=== PATIENT | male | born 1995 | race Caucasian/White ===

== ENCOUNTER 2016-06-05 19:29 | Emergency (ER) | payer MEDICAID, OTHER ==
[~2016-06-05] VITALS: Ht 182.9 cm; Wt 100.0 kg
[~2016-06-05 19:29] MED LIST: GEOD80CA PO; NAPR250UDC PO; TRAZ100 PO
[2016-06-05 19:33] VITALS: BP 147/78; PULSE 80; RESP 16; TEMP 97.7; O2SAT 98
--- NOTE | 2016-06-05 19:40 | PD ---
Physical Exam Time Seen by Provider: 19:37 Narrative 20 year old male here for evaluation. He has headache and neck pain radiating down R arm which started after playing football and having his collide with another player's shoulder. Questionable LOC. VSS seen at triage desk. Awaiting bed placement. Data Data Last Documented VS Vital Signs Date Time Temp Pulse Resp B/P Pulse Ox O2 Delivery O2 Flow Rate FiO2 06/05/16 19:33 97.7 80 16 147/78 98 MDM Medical Record Reviewed: Yes Supervised Visit with CASSY: Yes Adis Corea Jun 05, 2016 19:40
[2016-06-05 20:40] VITALS: BP 150/69; PULSE 61; RESP 18; O2SAT 99
--- NOTE | 2016-06-05 21:11 | PD ---
HPI Chief Complaint: Injury Time Seen by Provider: 20:59 Travel History International Travel<30 days: No Contact w/Intl Traveler<30days: No Traveled to known affect area: No History of Present Illness HPI 20-year-old male here by private vehicle for evaluation of head, neck, right shoulder pain, and right index finger pain. The patient reports that he was training for football and his backyard when he ran into a tree. He was not wearing any pads on this occurred. He knew he was getting off the ground. He is not sure if he lost consciousness. Pain is moderate, constant, worse with movement and palpation. No paresthesias or motor deficits. No abdominal pain. No dyspnea. No lower extremity pain. Borden cervical collar placed in triage. [facility] Past Medical History ADHD: Yes Asthma: Yes Cancer: No Developmental Delay: No Diabetes: No Diminished Hearing: No Psychiatric: Yes (THINKS BIPOLAR) Immunizations Current: Yes Migraines: Yes Seizures: Yes Thyroid Disease: No Ulcer: No Tetanus Vaccination: Unknown Influenza Vaccination: No Past Surgical History Appendectomy: No Cholecystectomy: No Other Surgery: No Social History Alcohol Use: No Tobacco Use: No Substance Use: No Allergies-Medications (Allergen,Severity, Reaction): Coded Allergies: No Known Allergies (Verified , 06/05/16) Reported Meds & Prescriptions Reported Meds & Active Scripts Active No Active Prescriptions or Reported Medications Review of Systems Except as stated in HPI: all other systems reviewed are Neg Physical Exam Narrative GENERAL: Well-developed, well-nourished, awake, alert, no acute distress. SKIN: Focused skin assessment warm/dry. Right anterior shoulder ecchymosis. Superficial abrasions to the dorsal aspect of the right index finger. HEAD: Atraumatic. Normocephalic. EYES: Pupils equal and round. No scleral icterus. No injection or drainage. ENT: Mucous membranes pink and moist. NECK: Trachea midline. No JVD. Mild midline and right lateral neck tenderness without step-offs or masses. CARDIOVASCULAR: Regular rate and rhythm. Capillary refill in right index finger less than 2 seconds. RESPIRATORY: No accessory muscle use. Clear to auscultation. Breath sounds equal bilaterally. GASTROINTESTINAL: Abdomen soft, non-tender, nondistended. MUSCULOSKELETAL: Skin exam as above. Mild ecchymosis throughout right index finger. The patient is able to flex and extend this finger, however it is painful for him. Right shoulder with diffuse tenderness with moderate edema without obvious bony deformity with limited range of motion secondary to pain. The rest of his joints and extremities are without deformity, without tenderness , with normal range of motion. NEUROLOGICAL: Awake and alert. No obvious cranial nerve deficits. Motor grossly within normal limits. Normal speech. PSYCHIATRIC: Appropriate mood and affect; insight and judgment normal. Data Data Last Documented VS Vital Signs Date Time Temp Pulse Resp B/P Pulse Ox O2 Delivery O2 Flow Rate FiO2 06/05/16 20:41 16 99 Room Air 06/05/16 20:40 61 150/69 06/05/16 19:[address] Brain W/O Iv Contrast(Rout) (06/05/16 ) Ct Cerv Spine W/O Contrast (06/05/16 ) Ct Thorax/ Chest Wo Iv Contras (06/05/16 ) Shoulder, Complete (>2vws) (06/05/16 ) Clavicle (06/05/16 ) Finger ([id number]) (06/05/16 ) Morphine Inj (Morphine Inj) (06/05/16 21:15) Tetanus/Diphtheria Tox Adult (Tetanus/Di (06/05/16 21:15) Morphine Inj (Morphine Inj) (06/05/16 21:30) Ketorolac Inj (Toradol Inj) (06/05/16 23:00) MDM Medical Decision Making Medical Screen Exam Complete: Yes Emergency Medical Condition: Yes Differential Diagnosis Intracranial trauma, concussion, cervical spine injury, right shoulder fracture versus dislocation, right clavicular fracture, right index finger fracture versus contusion Narrative Course Vital signs reviewed. CT head: Negative exam. CT cervical spine: Negative trauma CT. Right clavicle x-ray: The right clavicle is intact. Right shoulder x-ray: The right shoulder is intact. CT chest: Negative trauma CT. Right finger x-ray: Soft tissue swelling with no acute fracture or malalignment Patient was made aware of all findings. Cervical collar removed. He is resting comfortably. Right finger with 2 superficial abrasions to the dorsal aspect there were irrigated and bacitracin and sterile dressing were applied. The patient is stable for discharge home with outpatient follow-up with a primary care physician this week. He was informed on when to return to the emergency department. He verbalizes understanding and agreement with plan. Diagnosis Primary Impression: Contusion of right shoulder Qualified Code: S40.011A - Contusion of right shoulder, initial encounter Additional Impressions: Closed head injury Qualified Code: S09.90XA - Closed head injury, initial encounter Contusion of right index finger Qualified Code: S60.021A - Contusion of right index finger without damage to nail, initial encounter Abrasion of finger, right Qualified Code: S60.419A - Abrasion of finger, right, initial encounter Referrals: Primary Care Physician 3 days Additional Instructions: Follow-up with a primary care physician this week. Return to the emergency department for worsening symptoms or any other concerns as discussed. Scripts Naproxen 500 Mg Unp193 Mg PO BID 14 Days Ref 0 Prov:Carlos Don MD 06/05/16 Methocarbamol (Robaxin)500 Mg Lac098 Mg PO TID #20 TAB Ref 0 Prov:Carlos Don MD 06/05/16 Oxycodone-Acetaminophen (Percocet)5-325 mg Tab1 Tab PO Q6H PRN (PAIN) #10 TAB Ref 0 Prov:Carlos Don MD 06/05/16 Disposition: 01 DISCHARGE HOME Condition: Stable Carlos Don MD Jun 05, 2016 21:11
[2016-06-05] MEDS ORDERED: TETANUS/DIPHTHERIA TOXOID ADULT 0.5 ML VIAL IM ONE (21:15)
[2016-06-05] MEDS ORDERED: MORPHINE SULFATE 8 MG/ML INJ IM ONE (21:15)
[2016-06-05] MEDS ORDERED: MORPHINE SULFATE 8 MG/ML INJ IV PUSH ONE (21:30)
--- NOTE | 2016-06-05 22:00 | RADRPT ---
EXAM DATE/TIME: 06/05/2016 21:37 [facility] COMPARISON: No previous studies available for comparison. INDICATIONS : Headache and neck pain radiating to the right arm following football injury. RADIATION DOSE: 37.29 CTDIvol (mGy) MEDICAL HISTORY : None SURGICAL HISTORY : None. ENCOUNTER: Initial ACUITY: 1 day PAIN SCALE: 6/10 LOCATION: cranial TECHNIQUE: Multiple contiguous axial images were obtained of the head. Using automated exposure control and adj ustment of the mA and/or kV according to patient size, radiation dose was kept as low as reasonably a chievable to obtain optimal diagnostic quality images. FINDINGS: CEREBRUM: The ventricles are normal for age. No evidence of midline shift, mass lesion, hemorrhage or acute in farction. No extra-axial fluid collections are seen. POSTERIOR FOSSA: The cerebellum and brainstem are intact. The 4th ventricle is midline. The cerebellopontine angle i s unremarkable. EXTRACRANIAL: The visualized portion of the orbits is intact. SKULL: The calvaria is intact. No evidence of skull fracture. CONCLUSION: Negative exam. Arturo Leos MD on June 05, 2016 at 21:58 Board Certified Radiologist. This report was verified electronically.
--- NOTE | 2016-06-05 22:17 | RADRPT ---
EXAM DATE/TIME: 06/05/2016 21:46 [facility] COMPARISON: No previous studies available for comparison. INDICATIONS : Head and neck trauma following a football injury. RADIATION DOSE: 20.16 CTDIvol (mGy) MEDICAL HISTORY : None SURGICAL HISTORY : None. ENCOUNTER: Initial ACUITY: 1 day PAIN SCALE: 7/10 LOCATION: neck TECHNIQUE: Volumetric scanning of the cervical spine was performed. Multiplanar reconstructions i n the sagittal, coronal and oblique axial planes were performed. Using automated exposure control a nd adjustment of the mA and/or kV according to patient size, radiation dose was kept as low as reason ably achievable to obtain optimal diagnostic quality images. FINDINGS: The sagittal reconstructions demonstrate normal alignment and normal prevertebral soft tissues. The d ens is intact and there is a normal atlantoaxial relationship. The axial images demonstrate that the vertebral bodies and posterior elements are intact. The soft ti ssues are within normal limits. There is no evidence of acute fracture or malalignment. CONCLUSION: Negative trauma CT. Arturo Leos MD on June 05, 2016 at 22:14 Board Certified Radiologist. This report was verified electronically.
--- NOTE | 2016-06-05 22:19 | RADRPT ---
EXAM DATE/TIME: 06/05/2016 21:46 [facility] COMPARISON: No previous studies available for comparison. INDICATIONS : Headache and neck pain radiating to the right arm following football injury. RADIATION DOSE: 922 CTDIvol (mGy) MEDICAL HISTORY : None SURGICAL HISTORY : None. ENCOUNTER: Initial ACUITY: 1 day PAIN SCALE: 7/10 LOCATION: chest TECHNIQUE: Volumetric scanning of the chest was performed. Using automated exposure control and adjustment of t he mA and/or kV according to patient size, radiation dose was kept as low as reasonably achievable to obtain optimal diagnostic quality images. FINDINGS: LUNGS: There is no consolidation or pneumothorax. No concerning pulmonary nodule is visualized. PLEURAE: There is no pleural thickening or pleural effusion. MEDIASTINUM: The heart and great vessels demonstrate no acute abnormality. There is no mediastinal or hilar lymph adenopathy. AXILLAE: Within normal limits. No lymphadenopathy. MUSCULOSKELETAL: Within normal limits for patient age. MISCELLANEOUS: The visualized upper abdominal organs demonstrate no acute abnormality. CONCLUSION: Negative trauma CT. Arturo Leos MD on June 05, 2016 at 22:15 Board Certified Radiologist. This report was verified electronically.
--- NOTE | 2016-06-05 22:36 | RADRPT ---
EXAM DATE/TIME: 06/05/2016 21:20 [facility] COMPARISON: No previous studies available for comparison. INDICATIONS : Trauma. Pt ran into a tree while playing football. Pt has 2nd digit laceration with swelling. MEDICAL HISTORY : None. SURGICAL HISTORY : None. ENCOUNTER: Initial ACUITY: 1 day PAIN SCORE: 0/10 LOCATION: Right 2nd digit FINDINGS: Examination of the second digit of the right hand demonstrates no evidence of fracture or dislocation . No radiopaque foreign bodies are seen. There is soft tissue swelling over the proximal digit. CONCLUSION: Soft tissue swelling with no acute fracture or malalignment. Arturo Leos MD on June 05, 2016 at 22:34 Board Certified Radiologist. This report was verified electronically.
--- NOTE | 2016-06-05 22:37 | RADRPT ---
EXAM DATE/TIME: 06/05/2016 21:23 [facility] COMPARISON: No previous studies available for comparison. INDICATIONS : Trauma. Pt ran into a tree while playing football. Pt has R anterior clavicle pain. MEDICAL HISTORY : None. SURGICAL HISTORY : None. ENCOUNTER: Initial ACUITY: 1 day PAIN SCORE: 9/10 LOCATION: Right clavicle FINDINGS: Two view examination of the right clavicle demonstrates no evidence of fracture. The sternoclavicula r joints and acromioclavicular joints are maintained. Bony mineralization is normal. CONCLUSION: The right clavicle is intact. Arturo Leos MD on June 05, 2016 at 22:35 Board Certified Radiologist. This report was verified electronically.
--- NOTE | 2016-06-05 22:37 | RADRPT ---
EXAM DATE/TIME: 06/05/2016 21:26 [facility] COMPARISON: No previous studies available for comparison. INDICATIONS : Trauma. Pt ran into a tree while playing football. Pt has anterior right shoulder main. MEDICAL HISTORY : None. SURGICAL HISTORY : None. ENCOUNTER: Initial ACUITY: 1 day PAIN SCORE: 9/10 LOCATION: Right shoulder FINDINGS: Multiple view examination of the right shoulder demonstrates no evidence of fracture or dislocation. The glenohumeral and acromioclavicular joints are maintained. There is normal range of motion betwe en internal and external rotation. Bony mineralization is normal. CONCLUSION: The right shoulder is intact. Arturo Leos MD on June 05, 2016 at 22:35 Board Certified Radiologist. This report was verified electronically.
[2016-06-05] MEDS ORDERED: ROBA500T PO (22:56)
[2016-06-05] MEDS ORDERED: PERC5TAB12 PO (22:56)
[2016-06-05] MEDS ORDERED: NAPR500T PO (22:56)
[2016-06-05] MEDS ORDERED: KETOROLAC TROMETHAMINE 30 MG/ML (IVP) VIAL IV PUSH ONE (23:00)
== END 2016-06-05 23:26 | disposition home or self-care (01) ==
LOC: NEPD 19:29
DX: S40.011A Contusion of right shoulder, initial encounter (principal); S09.90XA Unspecified injury of head, initial encounter; S60.021A Contusion of right index finger without damage to nail, initial encounter; S60.410A Abrasion of right index finger, initial encounter; W22.09XA Striking against other stationary object, initial encounter; Y93.61 Activity, american tackle football; Y92.007 Garden or yard of unspecified non-institutional (private) residence as the place of occurrence of the external cause; Z23 Encounter for immunization; J45.909 Unspecified asthma, uncomplicated
CPT/HCPCS: 70450; 71250; 72125; 73000; 73030; 73140; 90471; 90714; 96374; 99284; J2270; L0150